=== PATIENT | female | born 1995 | race Caucasian/White ===

== ENCOUNTER 2019-01-29 10:55 | Emergency (ER) | payer OTHER, SELFPAY ==
[2019-01-29 11:08] VITALS: BP 129/80; PULSE 96; RESP 20; TEMP 36.8; O2SAT 100
--- NOTE | 2019-01-29 11:22 | W.ED.GENAD ---
Discharge Plan Disposition Patient Disposition: HOME Condition: Improving Discharge Details Chief Complaint: Urinary Clinical Impression: 24 weeks gestation of Primary Care Provider: None,None ED Provider: Lane Bashir Home Meds and New Rx's Prescriptions: No Action desogestrel-ethinyl estradiol [Apri] 1 EACH tablet 1 tab-cap PO DAILY Qty: 3 RF: 3 Discharge Instructions Additional Instructions: I have included your urinalysis results from today. Please follow-up with obstetrics for recheck in [place]. Return to emerge department for any acute concerns while in this area Urine Color Yellow Urine Clarity Clear Urine pH 6.5 Ur Specific [place] 1.015 Urine Protein Negative Urine Ketones Negative Urine Blood Negative Urine Nitrite Negative Urine Bilirubin Negative Urine Urobilinogen 0.2 Ur Leukocyte Esterase Negative Urine Glucose Negative Medical Decision Making 23-year-old female who is 24 weeks , states she is had 2 asymptomatic urinary tract infections during this , most recently treated with Macrobid which she finished on Sunday of last week. Was told that she should have a follow-up urinalysis performed and as she lives in [place], is here visiting, she presents to the ED. She has noted some mild intermittent in the left flank discomfort that is now resolved. She has otherwise recently been well. She has unremarkable vital signs. Her exam is reassuring. Urinalysis obtained, without evidence of acute urinary tract infection. Bedside informal ultrasound reveals single live IUP with heart rate approximately 140 She is stable for discharge. She will follow-up with obstetrics in [place] Lab Data Lab results reviewed: Yes I reviewed the patient's lab results. Laboratory Results - last 24 hr 01/29/19 11:15 Urine Color Yellow Urine Clarity Clear Urine pH 6.5 Ur Specific [place] 1.015 Urine Protein Negative Urine Ketones Negative Urine Blood Negative Urine Nitrite Negative Urine Bilirubin Negative Urine Urobilinogen 0.2 Ur Leukocyte Esterase Negative Urine Glucose Negative HPI General Mode of arrival: ambulatory. Date/Time Provider Initiated Documentation: 01/29/19 10:57. Limitations to Documentation: no limitations. Information obtained by: patient and family. History of Present Illness 23 year old F presents to the emergency department with the chief complaint of Recent asymptomatic uti, , described as mild and similar to prior episodes, and is localized to the back and left. Patient reports no radiation. and it has been intermittent and now resolved. No relieving factors improve symptom(s), No exacerbating factors reported . Patient notes no other symptoms.. Patient did receive the following treatments prior to arrival, other (Macrobid) Related Data Home Medications Medication Instructions Recorded Confirmed desogestrel-ethinyl estradiol 1 tab-cap PO DAILY #3 pack 11/24/16 [Apri] Allergies Allergy/AdvReac Type Severity Reaction Status Date / Time cephalexin monohydrate Allergy Intermediate HIVES Unverified 11/24/16 14:40 [From Keflex] Penicillins Allergy Intermediate HIVES Unverified 11/24/16 14:40 sulfamethoxazole Allergy Intermediate HIVES Unverified 11/24/16 14:40 [From Bactrim] trimethoprim [From Bactrim] Allergy Intermediate HIVES Unverified 11/24/16 14:40 General Stated Complaint: Urinary LORENA: 4 Review of Systems Review of Systems 6 systems reviewed and otherwise negative, no vaginal discharge or bleeding PFSH Medical History Bacterial urinary infection Neutropenic disorder Pneumonia Surgical History Arthroplasty of knee (02/04/13) Repair, ACL (09/02/12) Family History Mother Healthy adult Father Healthy adult Other No problems noted. Brother Age: 26 Heart disease Social History Smoking/Tobacco Use Status: Never Alcohol Intake: never Substance use type: does not use Exam Narrative Exam Narrative: GEN: awake, alert, oriented 3. Pleasant, well groomed, interactive. HEAD: Normocephalic, atraumatic ENT: Mucous membranes moist, oropharynx unremarkable, External ear exam unremarkable EYES: PERRL, EOMI NECK: Full ROM, no PADMA, no menigismus CHEST/RESP: Nontender, clear to auscultation bilateral, no wheeze/rhonchi/rales. The left flank has mild tenderness without evidence of rash. CARDIOVASCULAR: RRR, no murmur, rub rolando. 2+ Rad pulse bilateral ABDOMEN: Soft, nontender, gravid. +Bowel sounds EXT: Full ROM, no edema, no rash Neuro: Grossly normal neurologic exam, conversant, interactive. Psych: Speech fluent, thoughts congruent, affect normal Course Vital Signs Temperature 36.8 C 01/29/19 11:08 Pulse 96 H 01/29/19 11:08 Respiratory Rate 20 01/29/19 11:08 Blood Pressure 129/80 01/29/19 11:08 Pulse Oximetry 100 01/29/19 11:08 Temperature 36.8 C 01/29/19 11:08 Pulse 96 H 01/29/19 11:08 Respiratory Rate 20 01/29/19 11:08 Respiratory Effort Non-Labored 01/29/19 11:08 Blood Pressure 129/80 01/29/19 11:08 Pulse Oximetry 100 01/29/19 11:08 Pain Level 0 01/29/19 11:08
[2019-01-29 11:47] LABS: Bilirubin Negative (Negative); Blood Negative (Negative); Clarity Clear (Clear); Glucose Negative (Negative); Ketones Negative (Negative); Leukocyte Esterase Negative (Negative); Nitrite Negative (Negative); Specific Gravity 1.015 (1.005-1.025); Urobilinogen 0.2 EU/dL (Up TO 0.2); pH 6.5 (5-8)
--- NOTE | 2019-01-29 12:19 | NUR.NOTE ---
patient received discharge and follow up instruction per MD order Nursing Note:
== END 2019-01-29 12:21 | disposition home or self-care (01) ==
PROVIDERS: Emergency Provider Emergency Medicine
DX: O23.42 Unspecified infection of urinary tract in pregnancy, second trimester (principal); Z71.1 Person with feared health complaint in whom no diagnosis is made; R10.11 Right upper quadrant pain; Z87.440 Personal history of urinary (tract) infections; Z3A.24 24 weeks gestation of pregnancy
CPT/HCPCS: 99282; 81003